=== PATIENT | female | born 1985 | race African-American/Black ===

== ENCOUNTER 2017-02-08 17:14 | Emergency (ER) | payer MEDICAID, OTHER ==
[~2017-02-08] VITALS: Ht 152.4 cm; Wt 130.0 kg
[~2017-02-08 17:14] MED LIST: HYDRO25
[2017-02-08 17:16] VITALS: BP 157/77; PULSE 60; RESP 24; TEMP 99.1; O2SAT 100
[2017-02-08] MEDS ORDERED: BIRTH CONTROL (17:30)
--- NOTE | 2017-02-08 17:53 | PD ---
HPI Chief Complaint: Noc Analyst Problem/Complaint Time Seen by Provider: 17:26 Travel History International Travel<30 days: No Contact w/Intl Traveler<30days: No Traveled to known affect area: No History of Present Illness HPI 31-year-old female came to the emergency room with history of vaginal bleeding and passing large clots causing pelvic cramps. Patient says this has been going on for past 3 days but today got worse. No history of fever or chills. No history of dysuria. She had a bedside test done which was negative. No history of dizziness or lightheadedness. Vital signs were stable. Patient says that she has started taking control pills and has taken 8 so far without missing any dose. PFSH Past Medical History Narrative Medical List of her past medical, surgical, social and family history is reviewed from the nursing note. Diminished Hearing: No LMP: 02/05/17 Social History Alcohol Use: No Tobacco Use: No Substance Use: Yes (MARIJUANA ) Allergies-Medications (Allergen,Severity, Reaction): Coded Allergies: No Known Allergies (Unverified , 02/08/17) Comments No known drug allergies. Reported Meds & Prescriptions Reported Meds & Active Scripts Active Ibuprofen 600 Mg Tab 600 Mg PO Q6H PRN Reported [ Control] Narrative Medication List of her home medications reviewed from the nursing note. Review of Systems Except as stated in HPI: all other systems reviewed are Neg Physical Exam Narrative GENERAL: Awake, alert, morbidly obese, no obvious distress SKIN: Focused skin assessment warm/dry. HEAD: Atraumatic. Normocephalic. EYES: Pupils equal and round. No scleral icterus. No injection or drainage. ENT: No nasal bleeding or discharge. Mucous membranes pink and moist. NECK: Trachea midline. No JVD. CARDIOVASCULAR: Regular rate and rhythm. No murmur appreciated. RESPIRATORY: No accessory muscle use. Clear to auscultation. Breath sounds equal bilaterally. GASTROINTESTINAL: Abdomen soft, non-tender, nondistended. Hepatic and splenic margins not palpable. MUSCULOSKELETAL: No obvious deformities. No clubbing. No cyanosis. No edema. NEUROLOGICAL: Awake and alert. No obvious cranial nerve deficits. Motor grossly within normal limits. Normal speech. PSYCHIATRIC: Appropriate mood and affect; insight and judgment normal. Data Data Last Documented VS Vital Signs Date Time Temp Pulse Resp B/P Pulse Ox O2 Delivery O2 Flow Rate FiO2 7/7/17 17:16 99.1 60 24 157/77 100 Room Air Orders Urinalysis - C+S If Indicated (02/08/17 17:56) Ibuprofen (Motrin) (02/08/17 18:00) Labs Laboratory Tests Test 02/08/17 18:00 Urine Color YELLOW Urine Turbidity CLEAR Urine pH 6.0 Urine Specific Mims 1.024 Urine Protein TRACE mg/dL Urine Glucose (UA) NEG mg/dL Urine Ketones NEG mg/dL Urine Occult Blood LARGE Urine Nitrite NEG Urine Bilirubin NEG Urine Urobilinogen LESS THAN 2.0 MG/DL Urine Leukocyte Esterase NEG Urine RBC /hpf Urine Squamous Epithelial 4 /hpf Cells Microscopic Urinalysis Comment CULT NOT INDICATED MDM Medical Decision Making Medical Screen Exam Complete: Yes Emergency Medical Condition: Yes Medical Record Reviewed: Yes Differential Diagnosis Dysmenorrhea, dysfunctional uterine bleeding Narrative Course 7 PM UA was negative. Patient does have a [employer] when she needs to follow up with. She was given ibuprofen here. She'll be discharged home with ibuprofen prescription. Procedures EKG Prior to Arrival: No Diagnosis Primary Impression: Dysmenorrhea Additional Impression: Dysfunctional uterine bleeding Referrals: Primary Care Physician Additional Instructions: Please follow-up with your [employer] if the bleeding continues in spite of being on the SEPTUM of pills and the medication given to you as prescription. The medication as prescription direction. Drink lots of fluid to stay hydrated. Med/Other Pt SpecificInfo: Prescription(s) given Scripts Ibuprofen 600 Mg Qps088 Mg PO Q6H PRN (Pain/Inflammation) #40 TAB Ref 0 Prov:Mendy Tompkins MD 02/08/17 Disposition: 01 DISCHARGE HOME Condition: Stable Mendy Tompkins MD Feb 08, 2017 17:53
[2017-02-08] MEDS ORDERED: IBUPROFEN 800 MG TAB PO ONE (18:00)
[2017-02-08 18:31] LABS: BLOOD, URINE LARGE (NEG); COMMENT (UR) CULT NOT INDICATED; CULTURE IF INDICATED CULT NOT INDICATED; GLUCOSE,URINE NEG (NEG); KETONE, URINE NEG (NEG); NITRITE,URINE NEG (NEG); SQUAMOUS EPITHELIAL CELL URINE 4 /hpf (0-5); URINE COLOR YELLOW (YELLW/STRAW)
[2017-02-08] MEDS ORDERED: IBUP-232 PO (18:58)
== END 2017-02-08 19:17 | disposition home or self-care (01) ==
LOC: NEPD 17:14
DX: N94.6 Dysmenorrhea, unspecified (principal); N93.8 Other specified abnormal uterine and vaginal bleeding; E66.01 Morbid (severe) obesity due to excess calories; Z79.1 Long term (current) use of non-steroidal anti-inflammatories (NSAID); Z79.3 Long term (current) use of hormonal contraceptives
CPT/HCPCS: 81001; 99283